=== PATIENT | female | born 1935 | race Caucasian/White ===

== ENCOUNTER 2016-05-20 11:48 | Emergency (ER) | payer MEDICARE ==
[~2016-05-20] VITALS: Ht 162.6 cm; Wt 55.0 kg
[~2016-05-20 11:48] MED LIST: ASPI81 PO; ATOR20TA42 PO; CEPH500C3 PO; CHLO25CA PO; DILT120C9 PO; HYDR-2768 PO; METO50TA PO; NITR0.4S SL; REST30CA PO; TELM40 PO; ZOLO25TA PO
[2016-05-20 11:54] VITALS: PULSE 71; RESP 20; TEMP 98.2; O2SAT 95
[2016-05-20 12:09] VITALS: BP 198/89; PULSE 68; RESP 20; O2SAT 95
[2016-05-20] MEDS ORDERED: REST30CA PO (12:09)
[2016-05-20] MEDS ORDERED: ASPI81CH CHEW (12:09)
[2016-05-20] MEDS ORDERED: METO50TA PO (12:09)
[2016-05-20] MEDS ORDERED: HYDR25TA5 PO (12:09)
[2016-05-20] MEDS ORDERED: DILT120C9 PO (12:09)
[2016-05-20] MEDS ORDERED: TELM40 PO (12:09)
[2016-05-20] MEDS ORDERED: OMEP20TA PO (12:09)
[2016-05-20] MEDS ORDERED: ZOLO25TA PO (12:09)
[2016-05-20] MEDS ORDERED: LOVA10TA PO (12:09)
--- NOTE | 2016-05-20 12:26 | PD ---
HPI . Left arm pain, nausea and dizziness Chief Complaint: Chest Pain Time Seen by Provider: 12:16 Travel History International Travel<30 days: No Contact w/Intl Traveler<30days: No Traveled to known affect area: No History of Present Illness HPI Patient presents with left arm pain, nausea and dizziness which started last night. Her only complaint currently is nausea and weakness. She has taken nitroglycerin at home prior to presentation. She reports previous similar episodes related to her heart. She states that she has 3 stents. She has been evaluated since the stents have been placed and was subsequently discharged to home. [id number]: Left arm DURATION: 15 hours TIMING: Left arm pain has resolved CONTEXT: History of coronary artery disease MODIFYING FACTORS: Left arm pain reportedly relieved by nitroglycerin ASSOCIATED SYMPTOMS: Nausea, dizziness and weakness PFSH Past Medical History Hx Anticoagulant Therapy: Yes Arthritis: Yes Asthma: No Autoimmune Disease: No Blood Disorders: No Anxiety: Yes Depression: Yes Heart Rhythm Problems: No Cancer: No Cardiac Catheterization: Yes (2007 W/ STENTS X 3) Cardiovascular Problems: Yes High Cholesterol: Yes Chemotherapy: No Chest Pain: Yes Congestive Heart Failure: No COPD: No Cerebrovascular Accident: No Coronary Artery Disease: Yes Diabetes: No Diminished Hearing: No Endocrine: No Gastrointestinal Disorders: Yes (HX BOWEL OBSTRUCTION) GERD: No Glaucoma: No Genitourinary: No Headaches: Yes Hepatitis: No Hiatal Hernia: No Hypertension: Yes Immune Disorder: No Kidney Stones: Yes Musculoskeletal: No Neurologic: No Psychiatric: Yes Reproductive: Yes (HYSTERECTOMY) Respiratory: No Immunizations Current: Yes Migraines: No Myocardial Infarction: No Radiation Therapy: No Renal Failure: No Seizures: No Sickle Cell Disease: No Sleep Apnea: No Thyroid Disease: No Ulcer: No Tetanus Vaccination: > 5 Years Influenza Vaccination: Yes Menopausal: Yes : 4 Para: 4 Tubal Ligation: Yes Past Surgical History AICD: No Appendectomy: Yes Arteriovenous Shunt: No Cardiac Surgery: Yes (STENTS X 2) Cholecystectomy: No Coronary Artery Bypass Graft: No Coronary Stent: Yes (2004 AND 03/2008) Endocrine Surgery: No Eye Surgery: No Genitourinary Surgery: Yes (HYSTERECTOMY, COMPLETE REMOVAL OF KIDNEY STONES.) Gynecologic Surgery: Yes (HYSTERECTOMY) Hysterectomy: Yes Insulin Pump: No Joint Replacement: No Oral Surgery: No Pacemaker: No Thoracic Surgery: No Social History Alcohol Use: No Tobacco Use: No Substance Use: No Allergies-Medications (Allergen,Severity, Reaction): Coded Allergies: Sulfa (Verified Allergy, Severe, Rash, 05/20/16) Clonidine (Verified Allergy, Intermediate, HIVES, 05/20/16) Reported Meds & Prescriptions Reported Meds & Active Scripts Active Reported Aspirin 81 Mg Chew 81 Mg CHEW DAILY Zoloft (Sertraline HCl) 25 Mg Tab 25 Mg PO DAILY Lovastatin 10 Mg Tab 10 Mg PO DAILY Restoril (Temazepam) 30 Mg Cap 30 Mg PO HS PRN Metoprolol Tartrate 50 Mg Tab 50 Mg PO DAILY Diltiazem ER 12 HR (Diltiazem HCl) 120 Mg Caper 120 Mg PO DAILY Micardis (Telmisartan) 40 Mg Tab 40 Mg PO DAILY Omeprazole 20 Mg Tab 20 Mg PO DAILY Hydrochlorothiazide 25 Mg Tab 25 Mg PO DAILY Review of Systems Except as stated in HPI: all other systems reviewed are Neg General / Constitutional: No: Fever, Chills Cardiovascular: No: Chest Pain or Discomfort Respiratory: No: Shortness of Breath Gastrointestinal: Positive: Nausea, No: Vomiting, Diarrhea Musculoskeletal: Positive: Myalgias (left arm) Neurologic: Positive: Weakness, Dizziness Physical Exam Narrative GENERAL: Thin, elderly woman who is in no acute distress. SKIN: Warm and dry. HEAD: Atraumatic. Normocephalic. EYES: Pupils equal and round. ENT: No nasal bleeding or discharge. Mucous membranes pink and moist. NECK: Trachea midline. Neck is supple. CARDIOVASCULAR: Regular rate and rhythm. Heart sounds are normal. RESPIRATORY: No accessory muscle use. Lungs are clear with full air movement throughout. GASTROINTESTINAL: Abdomen soft, non-tender, nondistended. MUSCULOSKELETAL: No obvious deformities. No edema. No tenderness to palpation of the left upper extremity. NEUROLOGICAL: Awake and alert. No obvious cranial nerve deficits. Motor grossly within normal limits. Normal speech. PSYCHIATRIC: Appropriate mood and affect; insight and judgment normal. Data Data Last Documented VS Vital Signs Date Time Temp Pulse Resp B/P Pulse Ox O2 Delivery O2 Flow Rate FiO2 05/20/16 13:57 54 18 161/67 95 Room Air 05/20/16 11:54 98.2 Orders Electrocardiogram (05/20/16 ) Basic Metabolic Panel (Bmp) (05/20/16 12:16) Ckmb (Isoenzyme) Profile (05/20/16 12:16) Complete Blood Count With Diff (05/20/16 12:16) Magnesium (Mg) (05/20/16 12:16) Troponin I (05/20/16 12:16) Chest, Single Ap (05/20/16 12:16) Ecg Monitoring (05/20/16 12:16) Iv Access Insert/Monitor (05/20/16 12:16) Oximetry (05/20/16 12:16) Sodium Chloride 0.9% Flush (Ns Flush) (05/20/16 12:30) Ondansetron Inj (Zofran Inj) (05/20/16 12:30) Labs Laboratory Tests Test 05/20/16 12:20 White Blood Count 4.7 TH/MM3 Red Blood Count 4.34 MIL/MM3 Hemoglobin 13.0 GM/DL Hematocrit 38.4 % Mean Corpuscular Volume 88.4 FL Mean Corpuscular Hemoglobin 30.1 PG Mean Corpuscular Hemoglobin 34.0 % Concent Red Cell Distribution Width 14.5 % Platelet Count 198 TH/MM3 Mean Platelet Volume 7.6 FL Neutrophils (%) (Auto) 68.7 % Lymphocytes (%) (Auto) 23.6 % Monocytes (%) (Auto) 7.1 % Eosinophils (%) (Auto) 0.2 % Basophils (%) (Auto) 0.4 % Neutrophils # (Auto) 3.3 TH/MM3 Lymphocytes # (Auto) 1.1 TH/MM3 Monocytes # (Auto) 0.3 TH/MM3 Eosinophils # (Auto) 0.0 TH/MM3 Basophils # (Auto) 0.0 TH/MM3 CBC Comment DIFF FINAL Differential Comment Sodium Level 130 MEQ/L Potassium Level 3.5 MEQ/L Chloride Level 92 MEQ/L Carbon Dioxide Level 29.2 MEQ/L Anion Gap 9 MEQ/L Blood Urea Nitrogen 9 MG/DL Creatinine 0.82 MG/DL Estimat Glomerular Filtration 67 ML/MIN Rate Random Glucose 101 MG/DL Calcium Level 9.3 MG/DL Magnesium Level 1.7 MG/DL Total Creatine Kinase 56 U/L Troponin I LESS THAN 0.02 NG/ML MDM Medical Decision Making Medical Screen Exam Complete: Yes Emergency Medical Condition: Yes Medical Record Reviewed: Yes (patient last had a cardiac evaluation here on . She had a Lexiscan stress test which was negative. This was followed by a myocardial perfusion scan ejection fraction of 74%, normal wall motion, no reversible ischemia.) Interpretation(s) EKG shows a normal sinus rhythm with no acute ischemic change. EKG is unchanged from previous. Differential Diagnosis Differential diagnosis of chest pain includes but is not limited to musculoskeletal pain, pulmonary embolism, acute coronary syndrome, pneumonia, pleurisy Narrative Course Patient presents for the evaluation of left arm pain associated with nausea, dizziness and weakness. CBC & BMP Diagram 05/20/16 12:20 Cardiac enzymes are negative. Last Impressions Chest X-Ray 05/20/16 1216 Signed Impressions: Service Date/Time: Friday, May 20, 2016 12:21 - CONCLUSION: No acute disease. Maria Teresa Gomez MD The chest x-ray was independently viewed by me. The patient has had no further left arm pain or other "cardiac equivalent" while here. Her only complaints today have been nausea and weakness. Diagnosis Primary Impression: Left arm pain Additional Impression: Dizziness Disposition: 01 DISCHARGE HOME Condition: Stable Micaela Whitney MD May 20, 2016 12:26
[2016-05-20] MEDS ORDERED: SODIUM CHLORIDE 0.9% FLUSH 10 ML FLUSH IVF PRN (12:30)
[2016-05-20] MEDS ORDERED: ONDANSETRON HCL 4 MG/2 ML VIAL IV PUSH ONE (12:30)
[2016-05-20 12:44] VITALS: RESP 18; O2SAT 96
[2016-05-20 12:51] LABS: AUTOMATED NEUTROPHIL # 3.3 TH/MM3 (1.8-7.7); BASOPHIL % 0.4 % (0.0-2.0); EOSINOPHIL % 0.2 % (0.0-4.0); HEMATOCRIT 38.4 % (35.0-46.0); HEMO FLAGS DIFF FINAL; LYMPH % 23.6 % (9.0-44.0); LYMPHOCYTE # 1.1 TH/MM3 (1.0-4.8); MEAN CELL VOLUME 88.4 FL (80.0-100.0); MEAN CORPUSCULAR HEMOGLOBIN 30.1 PG (27.0-34.0); MONO % 7.1 % (0.0-8.0); NEUT % 68.7 % (16.0-70.0); PLATELET COUNT 198 TH/MM3 (150-450); RED BLOOD COUNT 4.34 MIL/MM3 (4.00-5.30); RED CELL DISTRIBUTION WIDTH 14.5 % (11.6-17.2); WHITE BLOOD COUNT 4.7 TH/MM3 (4.0-11.0)
--- NOTE | 2016-05-20 12:57 | RADRPT ---
EXAM DATE/TIME: 05/20/2016 12:21 [facility] COMPARISON: CHEST SINGLE AP, April 08, 2012, 19:50. INDICATIONS : Shortness of breath and left sided chest pain. MEDICAL HISTORY : None. SURGICAL HISTORY : Stent placement x3. ENCOUNTER: Initial ACUITY: 1 day PAIN SCORE: 5/10 LOCATION: Left upper chest FINDINGS: A single view of the chest demonstrates the lungs to be symmetrically aerated without evidence of mas s, infiltrate or effusion. The cardiomediastinal contours are unremarkable. Osseous structures are intact. CONCLUSION: No acute disease. Maria Teresa Gomez MD on May 20, 2016 at 12:55 Board Certified Radiologist. This report was verified electronically.
[2016-05-20 13:02] LABS: ANION GAP 9 MEQ/L (5-15); BICARBONATE 29.2 MEQ/L (21.0-32.0); BLOOD UREA NITROGEN 9 MG/DL (7-18); CHLORIDE 92 MEQ/L (98-107); GLOMERULAR FILTRATION RATE 67 ML/MIN (>89); MAGNESIUM 1.7 MG/DL (1.5-2.5); POTASSIUM 3.5 MEQ/L (3.5-5.1); SODIUM (NA) 130 MEQ/L (136-145)
[2016-05-20 13:05] VITALS: BP 172/72; PULSE 72; RESP 18; O2SAT 97
[2016-05-20 13:16] LABS: CREATINE KINASE 56 U/L (26-192)
[2016-05-20 13:57] VITALS: BP 161/67; PULSE 54; RESP 18; O2SAT 95
[2016-05-20 15:37] VITALS: BP 160/70; PULSE 54; RESP 18; O2SAT 96
--- NOTE | 2016-05-22 12:56 | EKG ---
Date Performed: 05/20/2016 Time Performed: 11:57:50 PTAGE: 81 years EKG: Sinus rhythm WITH OCCASIONAL ECTOPIC PREMATURE COMPLEXES NONSPECIFIC T-WAVE ABNORMALITY BORDERLINE ECG Compared t o prior tracing no significant change DOCTOR: Adan Escobar Interpretating Date/Time 05/22/2016 12:53:53
== END 2016-05-20 16:24 | disposition home or self-care (01) ==
LOC: NEPA 11:48
DX: M79.602 Pain in left arm (principal); R42 Dizziness and giddiness; R07.9 Chest pain, unspecified; R94.31 Abnormal electrocardiogram [ECG] [EKG]; I10 Essential (primary) hypertension; I25.10 Atherosclerotic heart disease of native coronary artery without angina pectoris
CPT/HCPCS: 71010; 80048; 82550; 83735; 84484; 85025; 93005; 96374; 99285; J2405

== ENCOUNTER 2016-08-15 01:47 | Observation (INO) | payer MEDICARE ==
[2016-08-15] VITALS (13 sets, daily range): BP systolic 140–210; BP diastolic 62–90; PULSE 51–98; RESP 16–20; TEMP 96–98; O2SAT 98–100
[~2016-08-15] VITALS: Ht 162.6 cm; Wt 60.0 kg
[~2016-08-15 01:47] MED LIST changes: -ASPI81 PO; +ASPI81CH CHEW; -ATOR20TA42 PO; -CEPH500C3 PO; -CHLO25CA PO; -HYDR-2768 PO; +HYDR25TA5 PO; +LOVA10TA PO; -NITR0.4S SL; +OMEP20TA PO
[2016-08-15] MEDS ORDERED: SODIUM CHLORIDE 0.9% FLUSH 10 ML FLUSH IVF PRN (02:15)
[2016-08-15 02:29] LABS: AUTOMATED NEUTROPHIL # 4.5 TH/MM3 (1.8-7.7); BASOPHIL % 0.6 % (0.0-2.0); EOSINOPHIL # 0.2 TH/MM3 (0-0.4); EOSINOPHIL % 2.8 % (0.0-4.0); HEMO FLAGS DIFF FINAL; LYMPH % 30.1 % (9.0-44.0); LYMPHOCYTE # 2.3 TH/MM3 (1.0-4.8); MEAN CELL VOLUME 88.1 FL (80.0-100.0); MEAN CORPUSCULAR HEMOGLOBIN 30.5 PG (27.0-34.0); MEAN CORPUSCULAR HGB CONC 34.6 % (32.0-36.0); MONO % 7.3 % (0.0-8.0); NEUT % 59.2 % (16.0-70.0); PLATELET COUNT 213 TH/MM3 (150-450); RED CELL DISTRIBUTION WIDTH 13.3 % (11.6-17.2); WHITE BLOOD COUNT 7.6 TH/MM3 (4.0-11.0)
[2016-08-15 02:38] LABS: APTT (PATIENT) 22.9 SEC (24.3-30.1); INTERNATIONAL NORMALIZED RATIO 0.9 RATIO; PROTHROMBIN TIME - PATIENT 10.4 SEC (9.8-11.6)
[2016-08-15] MEDS ORDERED: NITROGLYCERIN 2% OINT 1 GM PACKET TOPICAL ONE (02:45)
--- NOTE | 2016-08-15 02:45 | PD ---
HPI Chief Complaint: Chest Pain Time Seen by Provider: 02:42 Travel History International Travel<30 days: No Contact w/Intl Traveler<30days: No Traveled to known affect area: No History of Present Illness HPI 81-year-old female with history of CAD with multiple stents, hypertension, presents to the ER today brought in by EMS because she started having substernal chest discomfort with radiation up to her jaw area. She states the pain is currently a 5 out of 10, improved since she took her own nitroglycerin and was given aspirin by EMS. She denies any nausea, but states she has been short of breath. She denies any fevers or any other symptoms. Modifying Factors: None Associated Signs & Symptoms: Chest pains or shortness of breath Risk Factors: Cardiac history, stents PFSH Past Medical History Hx Anticoagulant Therapy: Yes Arthritis: Yes Asthma: No Autoimmune Disease: No Blood Disorders: No Anxiety: Yes Depression: Yes Heart Rhythm Problems: No Cancer: No Cardiac Catheterization: Yes (2007 W/ STENTS X 3) Cardiovascular Problems: Yes High Cholesterol: Yes Chemotherapy: No Chest Pain: Yes Congestive Heart Failure: No COPD: No Cerebrovascular Accident: No Coronary Artery Disease: Yes Diabetes: No Diminished Hearing: No Endocrine: No Gastrointestinal Disorders: Yes (HX BOWEL OBSTRUCTION) GERD: No Glaucoma: No Genitourinary: No Headaches: Yes Hepatitis: No Hiatal Hernia: No Hypertension: Yes Immune Disorder: No Kidney Stones: Yes Musculoskeletal: No Neurologic: No Psychiatric: Yes Reproductive: Yes (HYSTERECTOMY) Respiratory: No Immunizations Current: Yes Migraines: No Myocardial Infarction: No Radiation Therapy: No Renal Failure: No Seizures: No Sickle Cell Disease: No Sleep Apnea: No Thyroid Disease: No Ulcer: No Tetanus Vaccination: > 5 Years Influenza Vaccination: Yes Menopausal: Yes : 5 Para: 4 Miscarriage: 1 Tubal Ligation: Yes Past Surgical History AICD: No Appendectomy: Yes Arteriovenous Shunt: No Cardiac Surgery: Yes (STENTS X 3) Cholecystectomy: No Coronary Artery Bypass Graft: No Coronary Stent: Yes (2004 AND 03/2008) Endocrine Surgery: No Eye Surgery: No Genitourinary Surgery: Yes (HYSTERECTOMY, COMPLETE REMOVAL OF KIDNEY STONES.) Gynecologic Surgery: Yes (HYSTERECTOMY) Hysterectomy: Yes Insulin Pump: No Joint Replacement: No Oral Surgery: No Pacemaker: No Thoracic Surgery: No Social History Alcohol Use: No Tobacco Use: No Substance Use: No Allergies-Medications (Allergen,Severity, Reaction): Coded Allergies: Sulfa (Verified Allergy, Severe, Rash, 08/15/16) Clonidine (Verified Allergy, Intermediate, HIVES, 08/15/16) Amlodipine (Unverified Allergy, Mild, 08/15/16) Atorvastatin (Unverified Allergy, Mild, 08/15/16) Reported Meds & Prescriptions Reported Meds & Active Scripts Active Reported Aspirin 81 Mg Chew 81 Mg CHEW DAILY Zoloft (Sertraline HCl) 25 Mg Tab 25 Mg PO DAILY Lovastatin 10 Mg Tab 10 Mg PO DAILY Restoril (Temazepam) 30 Mg Cap 30 Mg PO HS PRN Metoprolol Tartrate 50 Mg Tab 50 Mg PO DAILY Diltiazem ER 12 HR (Diltiazem HCl) 120 Mg Caper 120 Mg PO DAILY Micardis (Telmisartan) 40 Mg Tab 40 Mg PO DAILY Omeprazole 20 Mg Tab 20 Mg PO DAILY Hydrochlorothiazide 25 Mg Tab 25 Mg PO DAILY Review of Systems Except as stated in HPI: all other systems reviewed are Neg Physical Exam Narrative GENERAL: Well-developed pleasant elderly white female patient currently in mild distress. Awake and oriented 3. SKIN: Focused skin assessment warm/dry. HEAD: Atraumatic. Normocephalic. EYES: Pupils equal and round. No scleral icterus. No injection or drainage. ENT: No nasal bleeding or discharge. Mucous membranes pink and moist. NECK: Trachea midline. No JVD. CARDIOVASCULAR: Regular rate and rhythm. No murmur appreciated. Pulses are present and equal bilaterally. RESPIRATORY: No accessory muscle use. Clear to auscultation. Breath sounds equal bilaterally. GASTROINTESTINAL: Abdomen soft, non-tender, nondistended. Hepatic and splenic margins not palpable. MUSCULOSKELETAL: No obvious deformities. No clubbing. No cyanosis. No edema. NEUROLOGICAL: Awake and alert. No obvious cranial nerve deficits. Motor grossly within normal limits. Normal speech. PSYCHIATRIC: Appropriate mood and affect; insight and judgment normal. Data Data Last Documented VS Vital Signs Date Time Temp Pulse Resp B/P Pulse Ox O2 Delivery O2 Flow Rate FiO2 08/15/16 02:20 53 18 189/81 99 Nasal Cannula 2 08/15/16 02:00 97.7 Orders Electrocardiogram (08/15/16 02:06) Basic Metabolic Panel (Bmp) (08/15/16 02:06) Ckmb (Isoenzyme) Profile (08/15/16 02:06) Complete Blood Count With Diff (08/15/16 02:06) Magnesium (Mg) (08/15/16 02:06) Prothrombin Time / Inr (Pt) (08/15/16 02:06) Act Partial Throm Time (Ptt) (08/15/16 02:06) Troponin I (08/15/16 02:06) Chest, Single Ap (08/15/16 02:06) Ecg Monitoring (08/15/16 02:06) Bilateral Bp Monitoring (08/15/16 02:06) Iv Access Insert/Monitor (08/15/16 02:06) Oximetry (08/15/16 02:06) Oxygen Administration (08/15/16 02:06) Sodium Chloride 0.9% Flush (Ns Flush) (08/15/16 02:15) Nitroglycerin 2% Oint (Nitroglycerin 2% (08/15/16 02:45) Sodium Chlorid 0.9% 500 Ml Inj (Ns 500 M (08/15/16 03:15) Labs Laboratory Tests Test 08/15/16 02:15 White Blood Count 7.6 TH/MM3 Red Blood Count 4.20 MIL/MM3 Hemoglobin 12.8 GM/DL Hematocrit 37.0 % Mean Corpuscular Volume 88.1 FL Mean Corpuscular Hemoglobin 30.5 PG Mean Corpuscular Hemoglobin 34.6 % Concent Red Cell Distribution Width 13.3 % Platelet Count 213 TH/MM3 Mean Platelet Volume 7.3 FL Neutrophils (%) (Auto) 59.2 % Lymphocytes (%) (Auto) 30.1 % Monocytes (%) (Auto) 7.3 % Eosinophils (%) (Auto) 2.8 % Basophils (%) (Auto) 0.6 % Neutrophils # (Auto) 4.5 TH/MM3 Lymphocytes # (Auto) 2.3 TH/MM3 Monocytes # (Auto) 0.6 TH/MM3 Eosinophils # (Auto) 0.2 TH/MM3 Basophils # (Auto) 0.0 TH/MM3 CBC Comment DIFF FINAL Differential Comment Prothrombin Time 10.4 SEC Prothromb Time International 0.9 RATIO Ratio Activated Partial 22.9 SEC Thromboplast Time Sodium Level 129 MEQ/L Potassium Level 3.5 MEQ/L Chloride Level 92 MEQ/L Carbon Dioxide Level 31.2 MEQ/L Anion Gap 6 MEQ/L Blood Urea Nitrogen 14 MG/DL Creatinine 0.87 MG/DL Estimat Glomerular Filtration 62 ML/MIN Rate Random Glucose 105 MG/DL Calcium Level 9.6 MG/DL Magnesium Level 1.8 MG/DL Total Creatine Kinase 51 U/L Troponin I LESS THAN 0.02 NG/ML MDM Medical Decision Making Medical Screen Exam Complete: Yes Emergency Medical Condition: Yes Medical Record Reviewed: Yes Interpretation(s) EKG shows NSR, no ST elevation or depression, and no arrhythmias. No significant T-wave inversions. Laboratory Tests Test 08/15/16 02:15 Activated Partial 22.9 SEC Thromboplast Time (24.3-30.1) Sodium Level 129 MEQ/L (136-145) Chloride Level 92 MEQ/L (98-107) Estimat Glomerular Filtration 62 ML/MIN (>89) Rate Troponin I LESS THAN 0.02 NG/ML (0.02-0.05) Last 24 hours Impressions Chest X-Ray 08/15/16 0206 Signed Impressions: Service Date/Time: Monday, August 15, 2016 02:04 - CONCLUSION: No evidence of acute cardiopulmonary disease. Kaiser Mayo MD Differential Diagnosis Chest pains and shortness of breathACS versus dysrhythmias versus pneumonia versus anxiety Narrative Course EKG did not show any significant dysrhythmias. Her lab work shows hyponatremia which patient has had in the past as well. A fluid bolus has been given in the ER. Patient had been given aspirin by EMS and nitroglycerin was given in the ER. Her blood pressure was somewhat elevated although was improved with nitroglycerin. At this point, cardiac enzyme is unremarkable and my plan would be to admit her for further evaluation of chest pain. Diagnosis Primary Impression: Chest pain Admitting Information Admitting Physician Requests: Admit Areli Robles MD Aug 15, 2016 02:45
--- NOTE | 2016-08-15 02:50 | RADRPT ---
EXAM DATE/TIME: 08/15/2016 02:04 [facility] COMPARISON: No previous studies available for comparison. INDICATIONS : Shortness of breath. Chest pain. MEDICAL HISTORY : None. SURGICAL HISTORY : Stent placement x3. ENCOUNTER: Initial ACUITY: 1 day PAIN SCORE: 5/10 LOCATION: Bilateral chest FINDINGS: A single view of the chest demonstrates the lungs to be symmetrically aerated without evidence of mas s, infiltrate or effusion. The cardiomediastinal contours are unremarkable. Osseous structures are intact. CONCLUSION: No evidence of acute cardiopulmonary disease. Kaiser Mayo MD on August 15, 2016 at 2:48 Board Certified Radiologist. This report was verified electronically.
[2016-08-15 02:58] LABS: ANION GAP 6 MEQ/L (5-15); BICARBONATE 31.2 MEQ/L (21.0-32.0); BLOOD UREA NITROGEN 14 MG/DL (7-18); CHLORIDE 92 MEQ/L (98-107); GLOMERULAR FILTRATION RATE 62 ML/MIN (>89); MAGNESIUM 1.8 MG/DL (1.5-2.5); POTASSIUM 3.5 MEQ/L (3.5-5.1); SODIUM (NA) 129 MEQ/L (136-145)
[2016-08-15 03:01] LABS: CREATINE KINASE 51 U/L (26-192)
[2016-08-15] MEDS ORDERED: SODIUM CHLORID 0.9% 500 ML INJ 500 ML IV ONE (03:15)
[2016-08-15] MEDS ORDERED: MORPHINE SULFATE 4 MG/ML INJ IV PUSH ONE (04:15)
[2016-08-15] MEDS ORDERED: DILTIAZEM-CD 120 MG CAP ER PO ONE (04:15)
[2016-08-15] MEDS ORDERED: cloNIDine HCL 0.2 MG TAB PO ONE (07:00)
--- NOTE | 2016-08-15 08:33 | HHI.HP ---
HPI Primary Care Physician Ramiro Silva MD Chief Complaint Chest pain History of Present Illness 81-year-old female with history of coronary artery disease including 3 cardiac stents presents to emergency room for further evaluation of chest pain. Onset 8 :30 PM. Location left anterior chest. Characterized as chest pressure. Radiating to left neck and left side of jaw. Associated symptoms shortness of breath. Denied nausea or diaphoresis. Duration "all evening." No known precipitating or relieving factors. She took nitroglycerin tablets 3 times without relief. Became concerned with radiation of pain to left neck and jaw area stating her normal angina only occurs in left anterior chest wall. Currently she is chest pain-free. Review of Systems General: No fatigue,weakness, fever, chills, or recent illness. Has been in her general state of health although stating ever since she developed pneumonia early this year she has not fully recovered. Lives independently. HEENT: No RODRIGUEZ, no vision changes, no nasal congestion or drainage. Occasional dysphasia with certain foods such as meats. CV: No current chest pain or pressure, Otherwise as stated above. No palpitations, intermittent leg pain, or dizziness. RESP: No SOB, cough, wheeze, or recent URI. GI: No nausea, vomiting, bowel changes, diarrhea, constipation, pain, distention , melena, blood in the stool. : No dysuria, urgency, frequency. History of kidney stones. EXT: No lower leg edema, no paraesthesias MS: No discomfort or change in ROM, ambulates independently without need for cane or walker NEURO: No difficulty with balance, LOC, motor/sensory deficits PSYCH: No anxiety, depression, or situational stress SKIN: No rashes, no concerning lesions Past Family Social History Allergies: Coded Allergies: Sulfa (Verified Allergy, Severe, Rash, 08/15/16) Clonidine (Verified Allergy, Intermediate, HIVES, 08/15/16) Amlodipine (Unverified Allergy, Mild, 08/15/16) Atorvastatin (Unverified Allergy, Mild, 08/15/16) Past Medical History Coronary artery disease, 3 cardiac stents, hypertension, kidney stones, GERD Past Surgical History Hysterectomy, appendectomy Reported Medications Active Reported Aspirin 81 Mg Chew 81 Mg CHEW DAILY Zoloft (Sertraline HCl) 25 Mg Tab 25 Mg PO DAILY Lovastatin 10 Mg Tab 10 Mg PO DAILY Restoril (Temazepam) 30 Mg Cap 30 Mg PO HS PRN Metoprolol Tartrate 50 Mg Tab 50 Mg PO DAILY Diltiazem ER 12 HR (Diltiazem HCl) 120 Mg Caper 120 Mg PO DAILY Micardis (Telmisartan) 40 Mg Tab 40 Mg PO DAILY Omeprazole 20 Mg Tab 20 Mg PO DAILY Hydrochlorothiazide 25 Mg Tab 25 Mg PO DAILY Active Ordered Medications Current Medications Medications (Trade) Dose Ordered Sig/Michael Route Start Time Stop Time Status Last Admin (NS Flush) 2 ml UNSCH PRN IVF 08/15/16 02:15 Social History No known diabetes or hyperlipidemia. Reports she has been taken off of her statin. Known hypertension. Lifelong nonsmoker. Denies any alcohol or illegal drug use. Lives independently, ambulate independently. Past cardiac testing Patient's cardiologistDrKaren Boyer 04/09/12 Richa scan nonischemic, EF 74% 04/23/11 [facility]a scan nonischemic 02/06/10 nonischemic, EF 70% 04/01/08 Cardiac catheterization (Dr. Sofya Jones)- Conclusion- 1. Critical proximal LAD stenosis successful drug-eluting stenting. 2. Patent stents in proximal and mid left anterior descending artery. 3. Codominant circulation. Physical Exam Vital Signs Vital Signs Date Time Temp Pulse Resp B/P Pulse Ox O2 Delivery O2 Flow Rate FiO2 08/15/16 08:00 98 Nasal Cannula 2.00 08/15/16 07:36 160/62 08/15/16 06:02 98.0 98 18 197/84 100 08/15/16 05:06 54 16 144/66 99 Nasal Cannula 2 08/15/16 04:55 16 08/15/16 04:24 52 18 171/71 100 Nasal Cannula 2 08/15/16 03:30 54 18 184/83 99 Nasal Cannula 2 08/15/16 03:16 98 Nasal Cannula 2.00 08/15/16 02:20 53 18 189/81 99 Nasal Cannula 2 08/15/16 02:00 97.7 60 18 210/90 99 Nasal Cannula 2 08/15/16 02:00 18 100 Nasal Cannula 2 Physical Exam GENERAL: Alert WN, WD, NAD, pleasant, elderly female HEAD: NC, AT EYES: Sclera clear, conjunctiva without injection, pupils equal and round ENT: Mucous membranes pink and moist NECK: Supple, no masses, trachea midline CV: RRR, 2/6 systolic murmur, without rub, gallop, no JVD, S1-S2 no S3-S4. RESP: Clear lungs throughout bilateral, no crackles, wheeze, rhonchi, symmetrical chest rise, nonlabored, able to speak in full sentences ABD: Soft, NT, ND, no masses, positive bowel tones EXT: Pulses +24, no dependent edema MS: Normal tone 4 extremities, nontender, no obvious deformities, full range of motion NEURO: CN II through CN XII grossly intact, motor strength 5/5, gait WNL PSYCH: A+O 3, pleasant affect, appropriate speech, appropriate mood and affect , insight and judgment SKIN: Normal turgor, normal texture, no lesions, no rashes, brisk cap refill, even hair distribution Laboratory Laboratory Tests Test 08/15/16 08/15/16 02:15 05:15 White Blood Count 7.6 Red Blood Count 4.20 Hemoglobin 12.8 Hematocrit 37.0 Mean Corpuscular Volume 88.1 Mean Corpuscular Hemoglobin 30.5 Mean Corpuscular Hemoglobin 34.6 Concent Red Cell Distribution Width 13.3 Platelet Count 213 Mean Platelet Volume 7.3 Neutrophils (%) (Auto) 59.2 Lymphocytes (%) (Auto) 30.1 Monocytes (%) (Auto) 7.3 Eosinophils (%) (Auto) 2.8 Basophils (%) (Auto) 0.6 Neutrophils # (Auto) 4.5 Lymphocytes # (Auto) 2.3 Monocytes # (Auto) 0.6 Eosinophils # (Auto) 0.2 Basophils # (Auto) 0.0 CBC Comment DIFF FINAL Differential Comment Prothrombin Time 10.4 Prothromb Time International 0.9 Ratio Activated Partial 22.9 Thromboplast Time Sodium Level 129 Potassium Level 3.5 Chloride Level 92 Carbon Dioxide Level 31.2 Anion Gap 6 Blood Urea Nitrogen 14 Creatinine 0.87 Estimat Glomerular Filtration 62 Rate Random Glucose 105 Calcium Level 9.6 Magnesium Level 1.8 Total Creatine Kinase 51 41 Troponin I LESS THAN 0.02 0.03 Result Diagram: 08/15/1621408/15/16214 Imaging Last Impressions Chest X-Ray 08/15/16205 Signed Impressions: Service Date/Time: Monday, August 15, 2016 02:04 - CONCLUSION: No evidence of acute cardiopulmonary disease. Kaiser Mayo MD Myocardial Perfusion Scan Nuc Med 08/15/16 0000 Signed Impressions: Service Date/Time: Monday, August 15, 2016 12:17 - CONCLUSION: Negative for infarct or ischemia. RISK CATEGORY: Low (<1%% Annual Mortality Rate) Saul Weir MD FACR Course EKGs Normal sinus bradycardic rhythm, no ST or T-segment changes Assessment and Plan Assessment and Plan #1 Chest painadmitted to chest pain center. Ruled out with 3 sets of EKGs, cardiac enzymes, and monitored overnight. Seen and evaluated by Dr. Keo Boyer. Complete a chemical stress test this a.m. Stress test unremarkable will discharge later this afternoon. Patient is agreeable to plan of care. #2 Hypertensioncontinue hydrochlorothiazide, diltiazem, Micardis #3 History of coronary artery diseasecontinue aspirin, metoprolol. #4 GERDcontinue omeprazole Fela Irvin Aug 15, 2016 08:33
[2016-08-15] MEDS ORDERED: NITROGLYCERIN 0.4 MG SL 25 TABS/BTL SL PRN (08:45)
[2016-08-15] MEDS ORDERED: ONDANSETRON HCL 4 MG/2 ML VIAL IV PRN (08:45)
[2016-08-15] MEDS ORDERED: ACETAMINOPHEN 500 MG CPLT PO PRN (08:45)
[2016-08-15] MEDS ORDERED: REGADENOSON INJ 0.4 MG/5 ML SYR ONE (12:46)
--- NOTE | 2016-08-15 13:53 | EKG ---
Date Performed: 08/15/2016 Time Performed: 08:16:44 PTAGE: 81 years EKG: SINUS BRADYCARDIA BORDERLINE ECG PREVIOUS TRACING : 08/15/2016 05.16 Since previous tracing, no significant change noted DOCTOR: Keo Boyer Interpretating Date/Time 08/15/2016 13:52:52
--- NOTE | 2016-08-15 13:54 | EKG ---
Date Performed: 08/15/2016 Time Performed: 05:16:27 PTAGE: 81 years EKG: SINUS BRADYCARDIA WITH PVC PREVIOUS TRACING : 08/15/2016 02.11 Since previous tracing, no significant change noted DOCTOR: Keo Boyer Interpretating Date/Time 08/15/2016 13:53:37
--- NOTE | 2016-08-15 13:54 | EKG ---
Date Performed: 08/15/2016 Time Performed: 02:11:14 PTAGE: 81 years EKG: SINUS BRADYCARDIA WITH OCCASIONAL VENTRICULAR PREMATURE COMPLEXES BORDERLINE ECG PREVIOUS TRACING : 05/20/2016 11.57 Since previous tracing, no significant change noted DOCTOR: Keo Boyer Interpretating Date/Time 08/15/2016 13:54:14
--- NOTE | 2016-08-15 14:00 | RADRPT ---
EXAM DATE/TIME: 08/15/2016 12:17 [facility] COMPARISON: MYOCARDIAL PERF PHARM SPECT, GATED W/EF, April 09, 2012, 11:18. INDICATIONS : Substernal chest pain radiating to jaw. Angina. Coronary artery disease. DOSE: 25.4 mCi Tc99m Myoview at stress. 8.5 mCi Tc99m Myoview at rest. 0.4 mg Lexiscan STRESS SYMPTOMS: Chest pressure and leg pressure. EJECTION FRACTION: 68% MEDICAL HISTORY : Hypertension. Coronary artery disease. SURGICAL HISTORY : Coronary artery stent. Hysterectomy. ENCOUNTER: Initial ACUITY: 1 day PAIN SCALE: 5/10 LOCATION: Substernal chest TECHNIQUE: The patient underwent pharmacologic stress with infusion of prescribed dose. Continuous ECG tracing was monitored during stress. Gated SPECT imaging was performed after stress and conventional SPECT i maging was performed at rest. The examination was performed on a SPECT/CT scanner, both attenuation and non-corrected datasets were reviewed. FINDINGS: The best perfusion is the lateral wall followed by the inferior wall. There is no redistribution sug gest ischemia. I see no fixed defects to suggest significant infarct. Ejection fraction is 68%. Th ere is minimal hypokinesis inferior wall. CONCLUSION: Negative for infarct or ischemia. RISK CATEGORY: Low (<1% Annual Mortality Rate) Saul Weir MD FACR on August 15, 2016 at 13:56 Board Certified Radiologist. This report was verified electronically.
--- NOTE | 2016-08-15 14:19 | TR ---
Date Performed: 08/15/2016 Time Performed: 13:00:03 DOCTOR: Keo Boyer DRUG LIST: CLINICAL HISTORY: CHEST PAIN REASON FOR TEST: CHEST PAIN REASON FOR ENDING: OBSERVATION: CONCLUSION: Lexiscan stress test was performed under standard four minute protocol. Radionuclid e was injected one minute prior to ending the test. No electrocardiographic abormalities were present to suggest ischemia. Nuclear imaging and interpretation are pending. COMMENTS:
[2016-08-15] MEDS ORDERED: HYDROCHLOROTHIAZIDE 25 MG TAB PO SCH (15:00)
[2016-08-15] MEDS ORDERED: DILTIAZEM-CD 120 MG CAP ER PO SCH (15:00)
[2016-08-15] MEDS ORDERED: SERTRALINE HCL 50 MG TAB PO SCH (15:00)
[2016-08-15] MEDS ORDERED: PANTOPRAZOLE SOD 20 MG DELAYED RELEASE TAB PO SCH (15:00)
[2016-08-15] MEDS ORDERED: LOSARTAN 50 MG TAB PO SCH (15:00)
[2016-08-15] MEDS ORDERED: METOPROLOL TARTRATE 50 MG TAB PO SCH (15:00)
[2016-08-15] MEDS ORDERED: PRAVASTATIN SOD 10 MG TAB PO SCH (15:00)
--- NOTE | 2016-08-15 15:06 | HHI.DCPOC ---
Discharge Care Plan Diagnosis: (1) Atypical chest pain (2) Hx of coronary artery disease Goals to Promote Your Health * To prevent worsening of your condition and complications * To maintain your health at the optimal level Directions to Meet Your Goals Take your medications as prescribed Follow your dietary instruction Follow activity as directed Keep your appointments as scheduled Take your immunizations and boosters as scheduled If your symptoms worsen call your PCP, if no PCP go to Urgent Care Center or Emergency Room Smoking is Dangerous to Your Health. Avoid second hand smoke Call the 24-hour hour crisis hotline for domestic abuse at [facility] Irvin Aug 15, 2016 15:06
== END 2016-08-15 16:46 | disposition home or self-care (01) ==
LOC: NEPC 01:47 → NEDA 03:05 → NEPGCP 05:48
PROVIDERS: ADMIT Internal Medicine Interventional Cardiology; ATTEND Internal Medicine Interventional Cardiology
DX: R07.89 Other chest pain (principal); I10 Essential (primary) hypertension; I25.10 Atherosclerotic heart disease of native coronary artery without angina pectoris; K21.9 Gastro-esophageal reflux disease without esophagitis; F41.9 Anxiety disorder, unspecified; F32.9 Major depressive disorder, single episode, unspecified; M19.90 Unspecified osteoarthritis, unspecified site; Z88.2 Allergy status to sulfonamides; Z88.8 Allergy status to other drugs, medicaments and biological substances; Z95.5 Presence of coronary angioplasty implant and graft; Z79.82 Long term (current) use of aspirin
CPT/HCPCS: 71010; 78452; 80048; 82550; 83735; 84484; 85025; 85379; 85610; 85730; 93005; 93017; 99285; A9502; G0378; J2270; J2785; J7040

== ENCOUNTER 2017-01-21 13:01 | Emergency (ER) | payer MEDICARE ==
[2017-01-21] VITALS (7 sets, daily range): BP systolic 190–219; BP diastolic 88–100; PULSE 59–99; RESP 15–18; TEMP 97.7; O2SAT 96–99
[~2017-01-21 13:01] MED LIST changes: +ASPI-516 CHEW; -ASPI81CH CHEW; -OMEP20TA PO; +OMEP20TA93 PO
[2017-01-21 13:37] LABS: AUTOMATED NEUTROPHIL # 6.5 TH/MM3 (1.8-7.7); BASOPHIL % 0.3 % (0.0-2.0); EOSINOPHIL % 0.2 % (0.0-4.0); HEMO FLAGS DIFF FINAL; LYMPH % 14.4 % (9.0-44.0); LYMPHOCYTE # 1.2 TH/MM3 (1.0-4.8); MEAN CELL VOLUME 91.2 FL (80.0-100.0); MEAN CORPUSCULAR HGB CONC 33.9 % (32.0-36.0); MONO % 4.6 % (0.0-8.0); NEUT % 80.5 % (16.0-70.0); PLATELET COUNT 227 TH/MM3 (150-450); RED BLOOD COUNT 4.38 MIL/MM3 (4.00-5.30); RED CELL DISTRIBUTION WIDTH 13.6 % (11.6-17.2); WHITE BLOOD COUNT 8.1 TH/MM3 (4.0-11.0)
[2017-01-21 13:48] LABS: APTT (PATIENT) 24.2 SEC (24.3-30.1); PROTHROMBIN TIME - PATIENT 10.6 SEC (9.8-11.6)
[2017-01-21 14:00] LABS: ANION GAP 7 MEQ/L (5-15); BICARBONATE 26.6 MEQ/L (21.0-32.0); BLOOD UREA NITROGEN 13 MG/DL (7-18); CHLORIDE 98 MEQ/L (98-107); GLOMERULAR FILTRATION RATE 54 ML/MIN (>89); MAGNESIUM 1.7 MG/DL (1.5-2.5); POTASSIUM 3.8 MEQ/L (3.5-5.1); SODIUM (NA) 132 MEQ/L (136-145)
[2017-01-21 14:11] LABS: CREATINE KINASE 55 U/L (26-192)
--- NOTE | 2017-01-21 15:10 | RADRPT ---
EXAM DATE/TIME: 01/21/2017 14:34 [facility] COMPARISON: CHEST PA & LAT, December 01, 2015, 10:08. INDICATIONS : Chest pain and shortness of breath. MEDICAL HISTORY : Hypertension. Coronary artery disease SURGICAL HISTORY : Coronary artery stent. Hysterectomy. ENCOUNTER: Initial ACUITY: 3 days PAIN SCORE: 4/10 LOCATION: Bilateral upper chest FINDINGS: PA and lateral views of the chest demonstrate the lungs to be symmetrically aerated without evidence of mass, infiltrate or effusion. The cardiomediastinal contours are unremarkable. Osseous structure s are intact. A scoliotic curvature involving the spine. CONCLUSION: No acute disease. Vitaliy Bass Jr., MD on January 21, 2017 at 15:06 Board Certified Radiologist. This report was verified electronically.
[2017-01-21] MEDS ORDERED: CHLORDIAZEPOXIDE (15:44)
[2017-01-21] MEDS ORDERED: CHLO25CA9 (15:45)
--- NOTE | 2017-01-21 16:02 | PD ---
HPI Chief Complaint: General Weakness Time Seen by Provider: 15:46 Travel History International Travel<30 days: No Contact w/Intl Traveler<30days: No Traveled to known affect area: No History of Present Illness HPI 81-year-old female patient presents to the ER today sent in by her primary care doctor, apparently complains that she has not urinated very much in the past few days, has been feeling weak, and has had leg swelling bilaterally. She has been eating and drinking normally, and primary care physician is concerned about possible underlying kidney problems. Apparently she has had renal sufficiency in the past. She denies any vomiting, abdominal pains, fevers, or other symptoms. Modifying Factors: None Associated Signs & Symptoms: General weakness, decreased urination Risk Factors: Elderly PFSH Past Medical History Hx Anticoagulant Therapy: Yes Arthritis: Yes Asthma: No Autoimmune Disease: No Blood Disorders: No Anxiety: Yes Depression: Yes Heart Rhythm Problems: No Cancer: No Cardiac Catheterization: No Cardiovascular Problems: Yes (htn) High Cholesterol: No Chemotherapy: No Chest Pain: Yes Congestive Heart Failure: No COPD: No Cerebrovascular Accident: No Coronary Artery Disease: Yes Diabetes: No Diminished Hearing: No Endocrine: No Gastrointestinal Disorders: Yes (HX BOWEL OBSTRUCTION) GERD: No Glaucoma: No Genitourinary: No Headaches: Yes Hepatitis: No Hiatal Hernia: No Hypertension: Yes Immune Disorder: No Kidney Stones: Yes Musculoskeletal: No Neurologic: No Psychiatric: Yes Reproductive: Yes (HYSTERECTOMY) Respiratory: No Immunizations Current: Yes Migraines: No Myocardial Infarction: No Radiation Therapy: No Renal Failure: No Seizures: No Sickle Cell Disease: No Sleep Apnea: No Thyroid Disease: No Ulcer: No ?: Not Menopausal: Yes : 5 Para: 4 Miscarriage: 1 Tubal Ligation: Yes Past Surgical History Abdominal Surgery: Yes AICD: No Appendectomy: Yes Arteriovenous Shunt: No Cardiac Surgery: Yes (STENTS X 3) Cholecystectomy: No Coronary Artery Bypass Graft: No Coronary Stent: Yes (2004 AND 03/2008) Endocrine Surgery: No Eye Surgery: No Genitourinary Surgery: Yes (HYSTERECTOMY, COMPLETE REMOVAL OF KIDNEY STONES.) Gynecologic Surgery: Yes (HYSTERECTOMY) Hysterectomy: Yes Insulin Pump: No Joint Replacement: No Oral Surgery: No Pacemaker: No Thoracic Surgery: No Social History Alcohol Use: No Tobacco Use: No Substance Use: No Allergies-Medications (Allergen,Severity, Reaction): Coded Allergies: Sulfa (Sulfonamide Antibiotics) (Verified Allergy, Severe, Rash, 01/21/17) clonidine (Verified Allergy, Intermediate, HIVES, 01/21/17) amlodipine (Verified Allergy, Mild, 01/21/17) atorvastatin (Verified Allergy, Mild, 01/21/17) Reported Meds & Prescriptions Reported Meds & Active Scripts Active Macrobid (Nitrofurantoin Monoh/Nitrofur Macro) 100 Mg Cap 100 Mg PO BID 7 Days Reported Chlordiazepoxide HCl 25 Mg Capsule Aspirin 81 Mg Chew 81 Mg CHEW DAILY Zoloft (Sertraline HCl) 25 Mg Tab 25 Mg PO DAILY Restoril (Temazepam) 30 Mg Cap 30 Mg PO HS PRN Metoprolol Tartrate 50 Mg Tab 50 Mg PO DAILY Micardis (Telmisartan) 40 Mg Tab 40 Mg PO DAILY Omeprazole 20 Mg Tab 20 Mg PO DAILY Review of Systems Except as stated in HPI: all other systems reviewed are Neg Physical Exam Narrative GENERAL: Well-developed elderly white female patient currently in no acute distress. Awake and oriented 3. SKIN: Focused skin assessment warm/dry. HEAD: Atraumatic. Normocephalic. EYES: Pupils equal and round. No scleral icterus. No injection or drainage. ENT: No nasal bleeding or discharge. Mucous membranes pink and moist. NECK: Trachea midline. No JVD. CARDIOVASCULAR: Regular rate and rhythm. No murmur appreciated. RESPIRATORY: No accessory muscle use. Clear to auscultation. Breath sounds equal bilaterally. GASTROINTESTINAL: Abdomen soft, non-tender, nondistended. Hepatic and splenic margins not palpable. MUSCULOSKELETAL: No obvious deformities. No clubbing. No cyanosis. No edema. NEUROLOGICAL: Awake and alert. No obvious cranial nerve deficits. Motor grossly within normal limits. Normal speech. PSYCHIATRIC: Appropriate mood and affect; insight and judgment normal. Data Data Last Documented VS Vital Signs Date Time Temp Pulse Resp B/P (MAP) Pulse Ox O2 Delivery O2 Flow Rate FiO2 01/21/17 18:31 61 15 202/95 (130) 01/21/17 17:16 99 Room Air 01/21/17 13:03 97.7 Orders Orders Electrocardiogram (01/21/17 13:08) Basic Metabolic Panel (Bmp) (01/21/17 13:08) B-Type Natriuretic Peptide (01/21/17 13:08) Ckmb (Isoenzyme) Profile (01/21/17 13:08) Complete Blood Count With Diff (01/21/17 13:08) Magnesium (Mg) (01/21/17 13:08) Prothrombin Time / Inr (Pt) (01/21/17 13:08) Act Partial Throm Time (Ptt) (01/21/17 13:08) Troponin I (01/21/17 13:08) Chest, Pa & Lat (01/21/17 13:08) Urinalysis - C+S If Indicated (01/21/17 15:46) Influenzae A/B Antigen (01/21/17 15:46) Urine Culture (01/21/17 16:00) Nitrofurantoin Monohyd Macrocr (Macrobid (01/21/17 17:15) Metoprolol Tartrate (Lopressor) (01/21/17 17:30) Lorazepam (Ativan) (01/21/17 19:00) Labs Laboratory Tests Test 01/21/17 13:20 01/21/17 16:00 White Blood Count 8.1 TH/MM3 Red Blood Count 4.38 MIL/MM3 Hemoglobin 13.6 GM/DL Hematocrit 40.0 % Mean Corpuscular Volume 91.2 FL Mean Corpuscular Hemoglobin 31.0 PG Mean Corpuscular Hemoglobin Concent 33.9 % Red Cell Distribution Width 13.6 % Platelet Count 227 TH/MM3 Mean Platelet Volume 6.8 FL Neutrophils (%) (Auto) 80.5 % Lymphocytes (%) (Auto) 14.4 % Monocytes (%) (Auto) 4.6 % Eosinophils (%) (Auto) 0.2 % Basophils (%) (Auto) 0.3 % Neutrophils # (Auto) 6.5 TH/MM3 Lymphocytes # (Auto) 1.2 TH/MM3 Monocytes # (Auto) 0.4 TH/MM3 Eosinophils # (Auto) 0.0 TH/MM3 Basophils # (Auto) 0.0 TH/MM3 CBC Comment DIFF FINAL Differential Comment Prothrombin Time 10.6 SEC Prothromb Time International Ratio 1.0 RATIO Activated Partial Thromboplast Time 24.2 SEC Blood Urea Nitrogen 13 MG/DL Creatinine 0.99 MG/DL Random Glucose 111 MG/DL Calcium Level 9.0 MG/DL Magnesium Level 1.7 MG/DL Sodium Level 132 MEQ/L Potassium Level 3.8 MEQ/L Chloride Level 98 MEQ/L Carbon Dioxide Level 26.6 MEQ/L Anion Gap 7 MEQ/L Estimat Glomerular Filtration Rate 54 ML/MIN Total Creatine Kinase 55 U/L Troponin I LESS THAN 0.02 NG/ML B-Type Natriuretic Peptide 115 PG/ML Urine Color YELLOW Urine Turbidity CLEAR Urine pH 6.0 Urine Specific [place] 1.013 Urine Protein NEG mg/dL Urine Glucose (UA) NEG mg/dL Urine Ketones 10 mg/dL Urine Occult Blood NEG Urine Nitrite NEG Urine Bilirubin NEG Urine Urobilinogen LESS THAN 2.0 MG/DL Urine Leukocyte Esterase LARGE Urine RBC 2 /hpf Urine WBC 48 /hpf Urine Squamous Epithelial Cells 1 /hpf Urine Transitional Epithelial Cells 1 /hpf Urine Bacteria RARE /hpf Urine Hyaline Casts 1 /lpf Urine Mucus FEW /lpf Microscopic Urinalysis Comment CULTURE INDICATED MDM Medical Decision Making Medical Screen Exam Complete: Yes Emergency Medical Condition: Yes Medical Record Reviewed: Yes Interpretation(s) Laboratory Tests Test 01/21/17 13:20 01/21/17 16:00 Mean Platelet Volume 6.8 FL (7.0-11.0) Neutrophils (%) (Auto) 80.5 % (16.0-70.0) Activated Partial Thromboplast Time 24.2 SEC (24.3-30.1) Random Glucose 111 MG/DL (74-106) Sodium Level 132 MEQ/L (136-145) Estimat Glomerular Filtration Rate 54 ML/MIN (>89) Troponin I LESS THAN 0.02 NG/ML B-Type Natriuretic Peptide 115 PG/ML (0-100) Urine Ketones 10 mg/dL (NEG) Urine Leukocyte Esterase LARGE (NEG) Urine WBC 48 /hpf (0-5) Urine Bacteria RARE /hpf (NONE) Urine Mucus FEW /lpf (OCC) Differential Diagnosis Decreased urination, general weakness: Acute renal failure versus metabolic issues versus dehydration versus viral syndrome versus sepsis Narrative Course Influenza is negative. Lab work did not show significant dehydration or metabolic issues. Renal functions are unremarkable. She does have a UTI which is suspect could be causing some of the symptoms. Planning to give her by mouth antibiotics. Vital signs are stable in the ER, plan for released with follow-up to primary care doctor. Return for any worsening in symptoms as needed. The plan has been discussed with her and she states understanding. Physician Communication Physician Communication Patient's blood pressure was elevated and she was given metoprolol and anxiety medications in the ER. She is awaiting reevaluation of blood pressure, planning to release. Case signed out to Dr. Morocho 7 PM pending reevaluation of blood pressure. Diagnosis Primary Impression: UTI (urinary tract infection) Additional Impression: Chronic hypertension Med/Other Pt SpecificInfo: Prescription(s) given Scripts Nitrofurantoin Monohydrate Macrocrystals (Macrobid) 100 Mg Cap 100 MG PO BID for Infection for 7 Days, #14 CAP 0 Refills Prov: Areli Robles MD 01/21/17 Disposition: 01 DISCHARGE HOME Condition: Stable Areli Robles MD Jan 21, 2017 16:02
[2017-01-21 16:47] LABS: BACTERIA, URINE RARE /hpf; BLOOD, URINE NEG (NEG); COMMENT (UR) CULTURE INDICATED; CULTURE IF INDICATED CULTURE INDICATED; GLUCOSE,URINE NEG (NEG); HYALINE CAST, URINE 1 /lpf (RARE); KETONE, URINE 10 mg/dL (NEG); MUCUS URINE FEW /lpf (OCC); NITRITE,URINE NEG (NEG); SQUAMOUS EPITHELIAL CELL URINE 1 /hpf (0-5); TRANSITIONAL EPI CELLS, URINE 1 /hpf; URINE COLOR YELLOW (YELLW/STRAW)
[2017-01-21] MEDS ORDERED: MACR100C2 PO (17:11)
[2017-01-21] MEDS ORDERED: NITROFURANTOIN MONOHYD MACROCR 100 MG CAP PO ONE (17:15)
[2017-01-21] MEDS ORDERED: METOPROLOL TARTRATE 50 MG TAB PO ONE (17:30)
[2017-01-21] MEDS ORDERED: LORazepam 0.5 MG TAB PO ONE (19:00)
--- NOTE | 2017-01-22 17:55 | EKG ---
Date Performed: 01/21/2017 Time Performed: 13:38:41 PTAGE: 81 years EKG: Sinus rhythm Since previous tracing, no significant change noted NORMAL ECG PREVIOUS TRACING : 08/15/2016 08.16 DOCTOR: Anabell Vivas Interpretating Date/Time 01/22/2017 17:54:34
== END 2017-01-21 20:05 | disposition home or self-care (01) ==
LOC: NEPC 13:01
DX: N39.0 Urinary tract infection, site not specified (principal); B96.89 Other specified bacterial agents as the cause of diseases classified elsewhere; I10 Essential (primary) hypertension; R53.1 Weakness; M79.89 Other specified soft tissue disorders; M19.90 Unspecified osteoarthritis, unspecified site; F41.9 Anxiety disorder, unspecified; I25.10 Atherosclerotic heart disease of native coronary artery without angina pectoris; F32.9 Major depressive disorder, single episode, unspecified
CPT/HCPCS: 71020; 80048; 81001; 82550; 83735; 83880; 84484; 85025; 85610; 85730; 87086; 87804; 93005; 99285